=== PATIENT | female | born 1980 | race Caucasian/White ===

== ENCOUNTER 2022-09-25 21:14 | Emergency (ER) | payer OTHER ==
[~2022-09-25] VITALS: Ht 160 cm; Wt 59.9 kg
[~2022-09-25 21:14] MED LIST: ANAPROX DS550 MG PO; BACTRIM DS 8001 TA1 PO; CIPRO500 MG PO; CLARITIN10 MG PO; CLEOCIN150 MG PO; CLINDAMYCIN HC300 MG PO; COLACE100 MG PO; DIFLUCAN150 MG PO; ELIMITE 5%60 GM PO; HYDROCODONE BIT1 T11 PO; IRON325 M1 PO; KEFLEX500 MG PO; LEVEMIR100 UNIT/1 SC; LOVASTATIN10 MG PO; Lantus SC; MACROBID100 M1 PO; METOCLOPRAMIDE5 MG PO; MOTRIN600 MG PO; MOTRIN800 MG PO; Motrin,Rufen800 MG PO; NAPROSYN500 MG PO; NKHM; NOVOLOG FL100 UNIT/2 SC; Nystatin Ointme30 GM T; ONDANSETRON HYDR8 MG PO; PERCOCET 325 MG1 TA2 PO; PNV-SELECT1 TAB PO; POLYCILLIN PO; POTASSIUM CHLO20 ME4 PO; PROTONIX40 MG PO; PYRIDIUM200 M1 PO; Percocet 325 MG1 TAB PO; RISPERDAL0.5 MG PO; SEPTRA DS 800 M1 TAB PO; SIMVASTATIN20 MG PO; TRAD5TAB1 PO; VITAMIN D250 MCG PO; ZITHROMAX250 MG PO
[2022-09-25 21:51] LABS: HEMATOCRIT 37.8 % (37.0-47.0); MEAN CELL VOLUME 82.9 fl (81.0-99.0); MEAN CORPUSCULAR HGB 28.3 pg (27.0-31.0); MEAN CORPUSCULAR HGB CONC 34.1 g/dl (33.0-37.0); MEAN PLATELET VOLUME 9.4 fl (9.6-12.3); PLATELET COUNT AUTOMATED 409 10*3/uL (130-400); RED BLOOD COUNT 4.56 10*6/uL (4.10-5.10); RED CELL DISTRI WIDTH 14.1 % (0-14.5); WHITE BLOOD COUNT 31.1 10*3/uL (4.8-10.8)
[2022-09-25 21:55] LABS: MANUAL DIFF REFLEX YES
[2022-09-25 22:08] LABS: POTASSIUM 4.3 mmol/L (3.4-5.1); TOTAL PROTEIN 8.3 gm/dL (6.0-8.0)
[2022-09-25 22:19] LABS: TOTAL CELLS COUNTED 100 #CELLS
[2022-09-25 22:20] LABS: OVALOCYTES FEW; PLATELET SUFFICIENCY HIGH (NORMAL)
[2022-09-25 22:22] LABS: POLYCHROMASIA SLIGHT
[2022-09-25 22:24] LABS: TOXIC GRANULATION SLIGHT
[2022-09-25 23:26] LABS: BILIRUBIN Negative (Negative); BLOOD Negative (Negative); CLARITY Cloudy (Clear); COLOR Yellow (Yellow); GLUCOSE 3+ (Negative); KETONE 1+ (Negative); NITRITE Negative (Negative); SPECIFIC GRAVITY 1.025 (1.001-1.030)
[2022-09-25 23:34] LABS: BACTERIA 1+; LEUKO ESTERASE Trace (Negative); MUCOUS 1+; WBC 16-20 wbc/hpf (0-5)
[2022-09-26] MEDS ORDERED: NOVOLOG100 UNIT/1 SC (23:19)
[2022-09-27] MEDS ORDERED: HUMULIN R100 UNIT/1 SC (13:31)
== END 2022-09-26 | disposition left against medical advice (07) ==
LOC: ED 21:14
PROVIDERS: Internal Medicine
DX: E11.10 Type 2 diabetes mellitus with ketoacidosis without coma (principal); Z88.0 Allergy status to penicillin; Z79.899 Other long term (current) drug therapy; Z98.890 Other specified postprocedural states; Z90.49 Acquired absence of other specified parts of digestive tract

== ENCOUNTER → 2022-09-26 | Emergency (ER) | payer OTHER ==
[~2022-09-26] VITALS: Wt 59.4 kg
[~2022-09-26] MED LIST changes: +HUMULIN R100 UNIT/1 SC; +NOVOLOG100 UNIT/1 SC
[2022-09-26 23:26] LABS: HEMATOCRIT 42.1 % (37.0-47.0); MEAN CELL VOLUME 93.8 fl (81.0-99.0); MEAN CORPUSCULAR HGB 28.7 pg (27.0-31.0); MEAN CORPUSCULAR HGB CONC 30.6 g/dl (33.0-37.0); MEAN PLATELET VOLUME 10.2 fl (9.6-12.3); PLATELET COUNT AUTOMATED 413 10*3/uL (130-400); RED BLOOD COUNT 4.49 10*6/uL (4.10-5.10); RED CELL DISTRI WIDTH 14.1 % (0-14.5); WHITE BLOOD COUNT 34.4 10*3/uL (4.8-10.8)
[2022-09-26 23:35] LABS: MANUAL DIFF REFLEX YES
[2022-09-26 23:46] LABS: PLATELET SUFFICIENCY HIGH (NORMAL); TOTAL CELLS COUNTED 100 #CELLS
[2022-09-27 00:02] LABS: ALKALINE PHOSPHATASE 148 U/L (46-116); BUN 20 mg/dl (9-23); CHLORIDE 79 mmol/L (98-107); POTASSIUM 4.9 mmol/L (3.4-5.1); SGPT/ALT 33 U/L (10-49); TOTAL PROTEIN 7.8 gm/dL (6.0-8.0)
== END ==
LOC: ED 23:06
PROVIDERS: Internal Medicine
DX: E11.65 Type 2 diabetes mellitus with hyperglycemia (principal); Z88.0 Allergy status to penicillin

== ENCOUNTER 2022-10-11 21:59 | Emergency (ER) | payer OTHER ==
[~2022-10-11] VITALS: Ht 157.4 cm; Wt 63.5 kg
[~2022-10-11 21:59] MED LIST changes: +LANTUS SOL100 UNIT/1 SC
[2022-10-11 22:23] LABS: BASO # 0.1 10*3/uL (0.0-0.1); BASO % 0.9 % (0.0-1.0); EOS # 0.1 10*3/uL (0.0-0.4); EOS % 1.5 % (1.0-4.0); HEMATOCRIT 34.7 % (37.0-47.0); LYMPH # 2.6 10*3/uL (1.3-4.4); LYMPH % 28.1 % (27.0-41.0); MEAN CELL VOLUME 86.8 fl (81.0-99.0); MEAN CORPUSCULAR HGB CONC 32.3 g/dl (33.0-37.0); MEAN PLATELET VOLUME 9.6 fl (9.6-12.3); MONO # 0.7 10*3/uL (0.1-1.0); MONO % 7.8 % (3.0-9.0); NEUT # 5.7 10*3/uL (2.3-7.9); NEUT % 61.5 % (47.0-73.0); PLATELET COUNT AUTOMATED 248 10*3/uL (130-400); RED CELL DISTRI WIDTH 14.9 % (0-14.5); WHITE BLOOD COUNT 9.2 10*3/uL (4.8-10.8)
[2022-10-11 22:46] LABS: ALKALINE PHOSPHATASE 83 U/L (46-116); BUN 5 mg/dl (9-23); CHLORIDE 103 mmol/L (98-107); POTASSIUM 3.8 mmol/L (3.4-5.1); SGPT/ALT 10 U/L (10-49); TOTAL PROTEIN 6.3 gm/dL (6.0-8.0)
[2022-10-11 22:58] LABS: BILIRUBIN Negative (Negative); BLOOD 3+ (Negative); CLARITY Cloudy (Clear); COLOR Yellow (Yellow); GLUCOSE 3+ (Negative); KETONE Trace (Negative); LEUKO ESTERASE 1+ (Negative); NITRITE Negative (Negative); SPECIFIC GRAVITY 1.025 (1.001-1.030)
[2022-10-11 23:09] LABS: EPITHELIAL CELLS 16-20; RBC 21-30 rbc/hpf (0-2)
[2022-10-11 23:10] LABS: BACTERIA 2+; MUCOUS 1+
== END 2022-10-12 01:06 | disposition home or self-care (01) ==
LOC: ED 21:59
PROVIDERS: Internal Medicine
DX: E11.65 Type 2 diabetes mellitus with hyperglycemia (principal); E87.20 Acidosis, unspecified; Z91.199 Patient's noncompliance with other medical treatment and regimen due to unspecified reason; D64.9 Anemia, unspecified; Z88.8 Allergy status to other drugs, medicaments and biological substances; Z88.0 Allergy status to penicillin; Z90.49 Acquired absence of other specified parts of digestive tract; Z98.890 Other specified postprocedural states

== ENCOUNTER 2022-10-12 05:01 | Emergency (ER) | payer OTHER ==
[~2022-10-12] VITALS: Ht 157.4 cm; Wt 63.5 kg
[2022-10-12 05:51] LABS: BUN 8 mg/dl (9-23); CHLORIDE 103 mmol/L (98-107); POTASSIUM 3.8 mmol/L (3.4-5.1)
[2022-10-12 06:17] LABS: BASO % 0.6 % (0.0-1.0); EOS # 0.1 10*3/uL (0.0-0.4); EOS % 1.4 % (1.0-4.0); HEMATOCRIT 33.1 % (37.0-47.0); LYMPH # 1.8 10*3/uL (1.3-4.4); LYMPH % 26.6 % (27.0-41.0); MEAN CELL VOLUME 85.8 fl (81.0-99.0); MEAN CORPUSCULAR HGB CONC 33.8 g/dl (33.0-37.0); MEAN PLATELET VOLUME 9.8 fl (9.6-12.3); MONO # 0.5 10*3/uL (0.1-1.0); MONO % 8.2 % (3.0-9.0); NEUT # 4.1 10*3/uL (2.3-7.9); NEUT % 62.6 % (47.0-73.0); PLATELET COUNT AUTOMATED 230 10*3/uL (130-400); RED BLOOD COUNT 3.86 10*6/uL (4.10-5.10); RED CELL DISTRI WIDTH 14.8 % (0-14.5); WHITE BLOOD COUNT 6.6 10*3/uL (4.8-10.8)
== END 2022-10-12 06:08 | disposition home or self-care (01) ==
LOC: ED 05:01
PROVIDERS: Internal Medicine
DX: E11.65 Type 2 diabetes mellitus with hyperglycemia (principal); Z91.199 Patient's noncompliance with other medical treatment and regimen due to unspecified reason; D64.9 Anemia, unspecified; Z88.8 Allergy status to other drugs, medicaments and biological substances; Z88.0 Allergy status to penicillin; Z90.49 Acquired absence of other specified parts of digestive tract; Z98.890 Other specified postprocedural states

== ENCOUNTER 2022-11-01 01:42 | Emergency (ER) | payer OTHER ==
[~2022-11-01] VITALS: Ht 165.1 cm; Wt 81.6 kg
== END 2022-11-01 02:04 | disposition home or self-care (01) ==
LOC: ED 01:42
DX: E11.65 Type 2 diabetes mellitus with hyperglycemia (principal); Z59.00 Homelessness unspecified; D64.9 Anemia, unspecified; Z88.0 Allergy status to penicillin; Z90.49 Acquired absence of other specified parts of digestive tract; Z98.890 Other specified postprocedural states